=== PATIENT | female | born 2000 | race Caucasian/White ===

== ENCOUNTER 2021-07-03 19:49 | Emergency (ER) | payer OTHER ==
[~2021-07-03] VITALS: Ht 165.1 cm; Wt 72.6 kg
[~2021-07-03 19:49] MED LIST: HYDACE5 PO; IBUP400 PO; Ultram50 MG PO; Zofran8 MG PO
[2021-07-03] MEDS ORDERED: EPIPEN0.3 MG/0.3 IM (21:03)
[2021-07-03] MEDS ORDERED: PRED20 PO (21:03)
== END 2021-07-03 21:24 | disposition home or self-care (01) ==
LOC: ER 19:49
DX: T63.441A Toxic effect of venom of bees, accidental (unintentional), initial encounter (principal); R06.02 Shortness of breath; Z88.5 Allergy status to narcotic agent
CPT/HCPCS: 96372; 99282; A9270; J2930

== ENCOUNTER → 2021-10-22 | Outpatient (CLI) | payer OTHER ==
[~2021-10-22] MED LIST changes: +EPIPEN0.3 MG/0.3 IM; +PRED20 PO
== END ==
LOC: LAB 16:25 → LAB SHORT 16:25
DX: J02.9 Acute pharyngitis, unspecified (principal)
CPT/HCPCS: 87081